=== PATIENT | male | born 1945 | race Caucasian/White ===

== ENCOUNTER 2025-03-22 00:57 | Observation (INO) ==
--- NOTE | 2025-03-22 01:25 | Emergency Department Note ---
Impression & Plan Acute upper abdominal pain, Vomiting, Cholelithiasis ED Provider Note NAME: KANDIS DRUMMOND AGE: 79 SEX: Male INFORMANT: Patient and ED PROVIDER(S): Henri Lim MD CHIEF COMPLAINT: Abdominal pain PLAN: Disposition: Admitted Outpatient prescription management: none Referral: None MEDICAL DECISION MAKING: Patient presented because of abdominal pain. On arrival to the exam room patient had nausea and vomiting. He had an IV established. ECG was nonischemic. No prior records available as the patient is traveling from [place]. Patient was treated with IV Dilaudid and Zofran for symptom control. He had an i-STAT performed patient was sent for CT imaging. CT imaging shows cholelithiasis. No obstruction, perforation, appendicitis or diverticulitis appreciated. Patient had a leukocytosis on CBC. Chemistry panel revealed a slight elevation of bilirubin and alkaline phosphatase without elevation of LFTs. Patient had negative cardiac troponin. Ultrasound imaging of the gallbladder was ordered. Patient was reassessed and pain was improving. He was found to have a distended gallbladder with borderline wall thickening and stones. No pericholecystic fluid appreciated. Patient was reassessed and is improving. Given the white count, abnormal imaging and mildly abnormal LFTs further evaluation, consultation and management in the hospital was deemed appropriate. Consultation was made with Dr. Carter of the [facility] service. Case discussed and diagnostics were reviewed. Patient was evaluated in the ER for further management. Care/management discussed with: associate brand manager Level of care consideration(s): After review of the information above and other included data, I feel the patient requires escalation of care to admission Triage Nursing notes: reviewed and agree them. Vital Signs: reviewed and remarkable for hypertension Additional History obtained from: Patient's regarding his medical history and patient's medications. Chronic Medical/Social Conditions affecting care: Diabetes and hypertension Prior/ Outside/ External records reviewed: None available Differential Diagnosis: Etiologies such as gastroenteritis, biliary pathology,food borne illness, infections, appendicitis, diverticulitis, inflammatory bowel disease, GI bleed, as well as others were entertained. Diagnostics, independently interpreted by me: ECG: Twelve-lead ECG reveals sinus rhythm at 60 bpm. Septal infarct and inferior infarct present. No ST elevation. Cardiac Monitoring: Cardiac monitoring ordered by me: The patient was placed on continuous cardiac monitoring and observed. It revealed a normal sinus rhythm at 69 beats per minute without ectopy or evidence of dysrhythmia. Medical decision rules: none Imaging studies: CT scan and ultrasound as above. Abnormal gallbladder. HPI: 79 year old Male arrives for evaluation of abdominal pain. This started about 3 hours ago and is persisting. The patient also notes the following associated symptoms, nausea and vomiting on ER arrival. The patient has found no relieving factors. Current pain is rated as 5/10. Patient notes pain was much worse. He notes few days ago he had a similar episode of pain but it resolved. Patient notes that he did have a steak dinner tonight. Denies any abdominal surgery history. Pt denies LOC, headache, fevers, chills, diaphoresis, visual changes, neck pain, chest pain, breathing difficulties, back pain, melena, hematochezia, urinary symptoms, numbness, weakness, lymphadenopathy, rash, or other complaints.. PAST MEDICAL HISTORY: See Below, diabetes, hypertension PAST SURGICAL HISTORY: See Below, TKR SOCIAL HISTORY: , see below HOME MEDICATIONS: See Below ALLERGIES: See Below VITALS: See Below PHYSICAL EXAMINATION: GENERAL: Awake, alert, uncomfortable-appearing, in no distress HENT: Normocephalic, atraumatic. Oropharynx unremarkable. EYES: Normal conjunctiva. Sclera non-icteric. NECK: Inspection normal. Non-tender. Supple. No nuchal rigidity. FROM. No masses. RESPIRATORY: Clear to auscultation. No wheezes. No rales. Normal respiratory effort. CARDIAC: Normal rate. Normal rhythm. No murmurs. No rubs. Extremities warm and well perfused. Pulses equal. No JVD. GI: Soft, mildly-distended. Right upper quadrant and epigastric tenderness to palpation. No rebound or guarding. No masses. RECTAL: Deferred. MUSCULOSKELETAL: Atraumatic. Chest examination reveals no tenderness. The back is symmetrical on inspection without obvious abnormality. There is no CVA tenderness to palpation. No joint edema. LOWER EXTREMITIES: Calves are equal size bilaterally and non-tender. No edema. No discoloration. NEURO: Normal sensorium. No sensory or motor deficits noted. SKIN: No rash or jaundice noted. PROCEDURES: none CRITICAL CARE: none OBSERVATION NOTE: none Past Med/Surg History Problem List (Updated 03/22/25 @ 04:57 by Henri Lim MD) Cholelithiasis (Acute) Vomiting (Acute) Acute upper abdominal pain (Acute) Social History Smoking Status: Former smoker Preferred Language: Swedish Feels Safe at Home: Yes Allergies Allergies Allergy/AdvReac Type Severity Reaction Status Date / Time No Known Allergies Allergy Unverified 03/22/25 02:12 Home Meds Home Medications Medication Instructions Recorded Confirmed amlodipine 5 mg tablet 5 mg PO QAM 03/22/25 03/22/25 atorvastatin 80 mg tablet 80 mg PO HS 03/22/25 03/22/25 dapagliflozin propanediol 10 mg 10 mg PO QAM 03/22/25 03/22/25 tablet (Farxiga) glipizide 5 mg tablet 5 mg PO BID 03/22/25 03/22/25 lisinopril 20 mg tablet 20 mg PO QAM 03/22/25 03/22/25 metformin 1,000 mg tablet 1,000 mg PO BID 03/22/25 03/22/25 Results & Data (ED) Vital Signs Vital Signs - 24 hr 03/22/25 01:01 03/22/25 01:05 03/22/25 01:16 Temperature 36.9 C Temperature Source Temporal Artery Scan Pulse Rate 73 69 68 Pulse Rate [Finger] Pulse Rhythm Regular Regular Pulse Rhythm [Finger] Pulse Strength Normal Pulse Strength [Finger] Respiratory Rate 22 20 Respiratory Effort / Characteristics Non-Labored Spontaneous Respiratory Depth Normal Respiratory Pattern Regular Blood Pressure 177/79 H Blood Pressure [Right Arm] Blood Pressure Mean 111 Blood Pressure Mean [Right Arm] Blood Pressure Position Sitting Blood Pressure Position [Right Arm] Pulse Oximetry 95 96 Oxygen Delivery Method Room Air Room Air Sepsis Recent Fever Within 48 Hours No Sepsis New/Unexplained Change in Mental Status N/A Sepsis Action Taken by Nursing No Action Required 03/22/25 03:00 Temperature Temperature Source Pulse Rate Pulse Rate [Finger] 73 Pulse Rhythm Pulse Rhythm [Finger] Regular Pulse Strength Pulse Strength [Finger] Normal Respiratory Rate 20 Respiratory Effort / Characteristics Non-Labored Respiratory Depth Normal Respiratory Pattern Regular Blood Pressure Blood Pressure [Right Arm] 127/74 Blood Pressure Mean Blood Pressure Mean [Right Arm] 91 Blood Pressure Position Blood Pressure Position [Right Arm] Lying Pulse Oximetry 96 Oxygen Delivery Method Sepsis Recent Fever Within 48 Hours Sepsis New/Unexplained Change in Mental Status Sepsis Action Taken by Nursing Laboratory Data 03/22/25 01:24 03/22/25 01:24 Lab Results 03/22/25 03/22/25 Range/Units 01:24 01:30 WBC 13.09 H (4.8-10.8) K/ul RBC 4.95 (4.70-6.10) M/uL Hgb 16.2 (14.0-18.0) g/dl POC Hgb 16.7 (14.0-18.0) g/dl Hct 47.4 (42.0-52.0) % POC Hct 49 (42-52) % MCV 95.8 (80.0-100.0) fL MCH 32.7 (25.0-34.0) pg MCHC 34.2 (32.0-36.0) g/dL RDW Std Deviation 44.9 (36.4-46.3) fL RDW Coeff of Nneka 12.7 (11.5-14.5) % Plt Count 186 (130-400) K/uL MPV 10.2 (9.4-12.4) fL Immature Gran % (Auto) 0.4 % Neut % (Auto) 57.3 % Lymph % (Auto) 34.5 % [place] % (Auto) 6.6 % Eos % (Auto) 0.8 % Baso % (Auto) 0.4 % Neut # (Auto) 7.49 H (1.40-6.50) K/uL Lymph # (Auto) 4.52 H (1.20-3.40) K/uL [place] # (Auto) 0.87 H (0.11-0.59) K/uL Eos # (Auto) 0.11 (0.00-0.50) K/uL Baso # (Auto) 0.05 (0.00-0.20) K/uL Immature Gran # (Auto) 0.05 (0.01-0.20) K/uL Polychromasia 1+ POC Sodium 140 (135-144) mmol/L Sodium 139 (136-145) mmol/L POC Potassium 4.2 (3.3-5.0) mmol/L Potassium 4.2 (3.5-5.1) mmol/L POC Chloride 103 (101-112) mmol/L Chloride 103 (98-107) mmol/L Carbon Dioxide 26 (21-32) mmol/L POC Total CO2 24 (24-31) mmol/L Anion Gap 10 (3-11) POC Anion Gap 19.0 (16-25) mmol/L POC BUN 19 H (7-18) mg/dl BUN 20 (6-23) mg/dl Creatinine 1.32 (0.6-1.4) mg/dl POC Creatinine 1.4 H (0.6-1.3) mg/dl Est Cr Clr Drug Dosing 54.0 ml/min eGFR 55.55 BUN/Creatinine Ratio 15.2 (10-20) Glucose 139 H (70-99(Fasting)) mg/dl POC Glucose (other) 139 H (70-99) mg/dl Calcium 9.6 (8.6-10.3) mg/dl POC Ioniz Calcium Ginny 1.24 (1.12-1.32) mmol/l Total Bilirubin 1.1 H (0.2-1.0) mg/dl AST 25 (13-39) U/L ALT 33 (7-52) U/L Alkaline Phosphatase 127 H (34-104) U/L Troponin I High Sens 5.1 (0-20) pg/ml Total Protein 7.5 (6.0-8.3) gm/dl Albumin 4.5 (3.4-5.0) gm/dl Globulin 3.0 (2.5-4.0) gm/dl Albumin/Globulin Ratio 1.5 (0.9-2) Lipase 39 (11-82) U/L Administered Medications Hydromorphone HCl (Hydromorphone Inj 0.5 Mg/0.5 Ml Syr) 0.5 mg IV Q15M PRN PRN Reason: Pain Stop: 04/05/25 01:15 Last Admin: 03/22/25 01:28 Dose: 0.5 mg Documented By: ZANE Discontinued Medications Ioversol (Optiray 320 100ml) 93 ml IV ONCE ONE Stop: 03/22/25 01:55 Last Admin: 03/22/25 01:54 Dose: 93 ml Documented By: SRUTHI Ondansetron HCl (Ondansetron Inj 2 Mg/Ml 2 Ml Vial) 4 mg IV NOW STA Stop: 03/22/25 01:17 Last Admin: 03/22/25 01:28 Dose: 4 mg Documented By: ZANE Imaging Data Radiologist's Impression: Abdomen/Pelvis CT 03/22/25 01:16 EXAM: CT abd pelvis IV con only CLINICAL HISTORY: RUQ and epigastric abd pain, vomiting TECHNIQUE: Contrast-enhanced CT of the abdomen and pelvis was performed, with the following protocol: axial images with, and reconstructed coronal and sagittal images. Intravenous 93ml optiray 320 contrast was administered. One of the following dose reduction techniques was utilized for this exam: Automated exposure control, adjustment of the mA and/or kV according to patient size, and use of iterative reconstruction. COMPARISON: None. FINDINGS: Abdomen: Liver: Normal in size, shape, and density. No focal lesions, cysts, or masses were identified. Hepatic vasculature and biliary ducts are unremarkable. Gallbladder and Biliary System: The GB shows average wall thickness with multiple small hyperdense stones. No wall thickening, pericholecystic fluid, or gallstones were identified. The common bile duct is normal in caliber without dilation. Pancreas: Pancreatic head, body, and tail are visualized and appear normal in size and density. No pancreatic masses or calcifications were noted. The pancreatic duct is not dilated. Spleen: Normal in size, shape, and density. No splenic lesions or masses were identified. Appendix: The appendix is normal in size without bridget appendiceal fat stranding, and without an appendicolith. No evidence of appendiceal abscess or perforation. Kidneys and Adrenal Glands: Both kidneys are normal in size, shape, and position. Cortical thickness is within normal limits. No renal calculi or hydronephrosis. Adrenal glands are unremarkable with no evidence of masses or hyperplasia. Pelvis: Urinary Bladder: The urinary bladder shows a lobulated contour mounting to diverticular formation (neurogenic bladder is suspected). No intraluminal lesions identified. Prostate: Normal in size and contour. No focal lesions or masses identified. Seminal Vesicles: Normal in size and appearance. No abnormalities noted. Rectum and Sigmoid Colon: Normal wall thickness and no evidence of mass. Peritoneal and Retroperitoneal Structures: No free fluid or abnormal fluid collections were identified within the abdomen or pelvis. No lymphadenopathy was noted. Bowel: Sigmoid diverticulosis with no evidence of acute diverticulitis. No evidence of bowel obstruction or wall thickening. Bones and Soft Tissues: Lumbar spondylodegenerative changes. No fractures or abnormal masses were identified. Other findings: Left side inguinal hernia containing mental fat. Small umbilical hernia. IMPRESSION: 1. No evidence of acute intra-abdominal pathology. 2. Cholelithiasis 3. Sigmoid diverticulosis with no evidence of acute diverticulitis. 4. The urinary bladder shows a lobulated contour mounting to diverticular formation; the neurogenic bladder is suspected to be clinically correlated. 5. Prostatomegaly BPH (with central calcifications) suggests PSA correlation. 6. Left side inguinal hernia containing omentum. 7. Small umbilical hernia. 8. Lumbar spondylodegenerative changes. Electronically signed by Hussain Telles 03-22-2025 02:49 AM Gallbladder Ultrasound 03/22/25 02:03 EXAM: US gallbladder CLINICAL HISTORY: RUQ pain, gallstones on CT TECHNIQUE: Ultrasound examination of the RUQ was performed using a [high-frequency transducer]. Scanning was performed with the patient in supine position. COMPARISON: A recent CT 03/22/2025 00:58 was reviewed FINDINGS: Liver: The liver is enlarged in size, measuring 17.8 cm. The liver displaying a bright homogenous echo-pattern suggests fatty infiltration. Focal fatty sparing adjacent to the GB. Irregularly shaped hypoechoic region at the right lobe, the central portion is hypoechoic than the periphery, differentials include mass Vs fat sparing, measuring 1.3x1.1x1.1 cm. Hepatic vasculature appears normal. Gallbladder: Gallbladder size: The gall bladder is distended measuring 8.8 cm in maximal length, and shows a thickened wall 4 mm with multiple variable-sized stones and sludge. No evidence of gallbladder wall edema or signs of acute cholecystitis. Biliary Tree: The common bile duct is prominent, measuring 6 mm. No evidence of choledocholithiasis or biliary obstruction. Right Kidney: The right kidney appears normal in size with preserved corticomedullary differentiation. No evidence of hydronephrosis, renal cysts, or masses. IMPRESSION: Ultrasound examination of the Right Upper Quadrant (RUQ): 1. Fatty hepatomegaly with fat-sparing areas. 2. Irregularly shaped hypoechoic region at the right lobe, the central portion is hypoechoic than the periphery, differentials include mass Vs fat sparing, measuring 1.3x1.1x1.[address] scan triphasic protocol is advised. 3. Cholelithiasis without acute cholecystitis. 4. Recommendation: clinical correlation with symptoms and further evaluation as indicated. Electronically signed by Hussain Telles 03-22-2025 04:16 AM Discharge Plan Visit Data Chief Complaint: Abdominal Pain Stated Complaint: ABD PAIN ED Provider: Henri Lim Discharge Problem: Acute upper abdominal pain, Vomiting, Cholelithiasis Patient Disposition: Admitted As Inpatient Condition: Fair Forms Stand Alone Forms: My [facility] Prescriptions Prescriptions: No Action atorvastatin 80 mg tablet 80 mg PO HS metformin 1,000 mg tablet 1,000 mg PO BID dapagliflozin propanediol [Farxiga] 10 mg tablet 10 mg PO QAM lisinopril 20 mg tablet 20 mg PO QAM amlodipine 5 mg tablet 5 mg PO QAM glipizide 5 mg Tablet 5 mg PO BID Referrals Referrals: PCP,NO [Physician] -
[2025-03-22] MEDS: ONDANSETRON INJ 2 MG/ML 2 ML VIAL IV STA (01:28)
[2025-03-22] MEDS: HYDROmorphone INJ 0.5 MG/0.5 ML SYR IV PRN (01:28)
[2025-03-22 01:41] LABS: Hematocrit (blood only) 47.4 % (42.0-52.0); Hemoglobin 16.2 g/dl (14.0-18.0); Mean Corpuscular Hemoglobin 32.7 pg (25.0-34.0); Mean Corpuscular Volume 95.8 fL (80.0-100.0); Platelet Count 186 K/uL (130-400); RDW Standard Deviation 44.9 fL (36.4-46.3); Red Blood Count 4.95 M/uL (4.70-6.10); White Blood Count 13.09 K/ul (4.8-10.8)
[2025-03-22] MEDS: OPTIRAY 320 100ml IV ONE (01:54)
[2025-03-22 02:00] LABS: Immature Granulocytes # (auto) 0.05 K/uL (0.01-0.20); Immature Granulocytes % (auto) 0.4 %; Polychromasia 1+
[2025-03-22 02:11] LABS: Alanine Aminotransferase 33.0 U/L (7-52); Albumin Globulin Ratio 1.5 (0.9-2); Alkaline Phosphatase 127.0 U/L (34-104); Anion Gap 10.0 (3-11); Bilirubin,Total 1.1 mg/dl (0.2-1.0); Blood Urea Nitrogen 20.0 mg/dl (6-23); Calcium 9.6 mg/dl (8.6-10.3); Carbon Dioxide 26.0 mmol/L (21-32); Chloride 103.0 mmol/L (98-107); Creatinine Clr Calc Pharmacy 54.0 ml/min; Globulin 3.0 gm/dl (2.5-4.0); Glucose 139.0 mg/dl (70-99(Fasting)); Lipase 39.0 U/L (11-82); Potassium 4.2 mmol/L (3.5-5.1); Sodium 139.0 mmol/L (136-145); Total Protein 7.5 gm/dl (6.0-8.3)
--- NOTE | 2025-03-22 02:49 | CT Scan Report ---
EXAM: CT abd pelvis IV con only CLINICAL HISTORY: RUQ and epigastric abd pain, vomiting TECHNIQUE: Contrast-enhanced CT of the abdomen and pelvis was performed, with the following protocol: axial images with, and reconstructed coronal and sagittal images. Intravenous 93ml optiray 320 contrast was administered. One of the following dose reduction techniques was utilized for this exam: Automated exposure control, adjustment of the mA and/or kV according to patient size, and use of iterative reconstruction. COMPARISON: None. FINDINGS: Abdomen: Liver: Normal in size, shape, and density. No focal lesions, cysts, or masses were identified. Hepatic vasculature and biliary ducts are unremarkable. Gallbladder and Biliary System: The GB shows average wall thickness with multiple small hyperdense stones. No wall thickening, pericholecystic fluid, or gallstones were identified. The common bile duct is normal in caliber without dilation. Pancreas: Pancreatic head, body, and tail are visualized and appear normal in size and density. No pancreatic masses or calcifications were noted. The pancreatic duct is not dilated. Spleen: Normal in size, shape, and density. No splenic lesions or masses were identified. Appendix: The appendix is normal in size without bridget appendiceal fat stranding, and without an appendicolith. No evidence of appendiceal abscess or perforation. Kidneys and Adrenal Glands: Both kidneys are normal in size, shape, and position. Cortical thickness is within normal limits. No renal calculi or hydronephrosis. Adrenal glands are unremarkable with no evidence of masses or hyperplasia. Pelvis: Urinary Bladder: The urinary bladder shows a lobulated contour mounting to diverticular formation (neurogenic bladder is suspected). No intraluminal lesions identified. Prostate: Normal in size and contour. No focal lesions or masses identified. Seminal Vesicles: Normal in size and appearance. No abnormalities noted. Rectum and Sigmoid Colon: Normal wall thickness and no evidence of mass. Peritoneal and Retroperitoneal Structures: No free fluid or abnormal fluid collections were identified within the abdomen or pelvis. No lymphadenopathy was noted. Bowel: Sigmoid diverticulosis with no evidence of acute diverticulitis. No evidence of bowel obstruction or wall thickening. Bones and Soft Tissues: Lumbar spondylodegenerative changes. No fractures or abnormal masses were identified. Other findings: Left side inguinal hernia containing mental fat. Small umbilical hernia. IMPRESSION: 1. No evidence of acute intra-abdominal pathology. 2. Cholelithiasis 3. Sigmoid diverticulosis with no evidence of acute diverticulitis. 4. The urinary bladder shows a lobulated contour mounting to diverticular formation; the neurogenic bladder is suspected to be clinically correlated. 5. Prostatomegaly BPH (with central calcifications) suggests PSA correlation. 6. Left side inguinal hernia containing omentum. 7. Small umbilical hernia. 8. Lumbar spondylodegenerative changes. Electronically signed by Hussain Telles 03-22-2025 02:49 AM
--- NOTE | 2025-03-22 04:16 | Ultrasound Report ---
EXAM: US gallbladder CLINICAL HISTORY: RUQ pain, gallstones on CT TECHNIQUE: Ultrasound examination of the RUQ was performed using a [high-frequency transducer]. Scanning was performed with the patient in supine position. COMPARISON: A recent CT 03/22/2025 00:58 was reviewed FINDINGS: Liver: The liver is enlarged in size, measuring 17.8 cm. The liver displaying a bright homogenous echo-pattern suggests fatty infiltration. Focal fatty sparing adjacent to the GB. Irregularly shaped hypoechoic region at the right lobe, the central portion is hypoechoic than the periphery, differentials include mass Vs fat sparing, measuring 1.3x1.1x1.1 cm. Hepatic vasculature appears normal. Gallbladder: Gallbladder size: The gall bladder is distended measuring 8.8 cm in maximal length, and shows a thickened wall 4 mm with multiple variable-sized stones and sludge. No evidence of gallbladder wall edema or signs of acute cholecystitis. Biliary Tree: The common bile duct is prominent, measuring 6 mm. No evidence of choledocholithiasis or biliary obstruction. Right Kidney: The right kidney appears normal in size with preserved corticomedullary differentiation. No evidence of hydronephrosis, renal cysts, or masses. IMPRESSION: Ultrasound examination of the Right Upper Quadrant (RUQ): 1. Fatty hepatomegaly with fat-sparing areas. 2. Irregularly shaped hypoechoic region at the right lobe, the central portion is hypoechoic than the periphery, differentials include mass Vs fat sparing, measuring 1.3x1.1x1.[address] scan triphasic protocol is advised. 3. Cholelithiasis without acute cholecystitis. 4. Recommendation: clinical correlation with symptoms and further evaluation as indicated. Electronically signed by Hussain Telles 03-22-2025 04:16 AM
--- NOTE | 2025-03-22 05:17 | History & Physical Report ---
Date of Service March 22, 2025 Assessment & Plan (1) Acute upper abdominal pain: (2) Hypertension: (3) Hyperlipidemia: (4) Diabetes: Plan 79yo male with hypertension, hyperlipidemia and DM presenting with episode of epigastric and RUQ abdominal pain that occurred approximately 3 hours after eating. Patient had a similar episode several days ago. He is afebrile, HD stable, and non-toxic in appearance Labs are significant for mild leukocytosis with WBC=13.09 OH=528, Tbili=1.1 with normal LFTs otherwise Imaging results as above wit cholelithiasis without acute cholecystitis #Acute upper abdominal pain - suspect biliary colic, not being interpreted as acute cholecystitis as of yet -Observation to medical -Maintain NPO -LR at 100L/hr x 2L -Empiric Zosyn for now -Pain control with Dilaudid PRN -Zofran PRN nausea -Colace and Miralax PRN -General Surgery consultation appreciated -Repeat labs - BMP, LFTs, CBC - today at 0700 * Patient ideally would like to be discharged to return to [place] and followup with his home physicians if it is safe to do so. HIM consultation placed to copy patient's records and to place imaging on a disc in event patient is discharged later today #Hypertension -Continue Amlodipine 5mg po daily -Hold Lisinopril -Continue to monitor #Hyperlipidemia -Continue Atorvastatin #Diabetes -Hold home agents, Metformin, Glipizide, Farxiga -Lantus 5u BID -ISS -Goal blood sugar 110 - 140 History of Present Illness Chief Complaint: RUQ pain Primary Care Provider: BURKE Mitchell is a pleasant 79yo male with history of HTN, HLP, DM and BPH presenting with epigastric and RUQ pain. Patient ate dinner this evening around 18:00. Around 21:30 he developed severe epigastric and RUQ discomfort. Pain was coming in waves. No diarrhea, fever, chills, rigors or sweats. He had a similar episodes several days ago. In the ER patient developed nausea and had two episodes of non-bloody/non-bilious vomiting. No additional complaints at this time ER Course: Zofran Dilaudid Allergies Allergy/AdvReac Type Severity Reaction Status Date / Time No Known Allergies Allergy Unverified 03/22/25 02:12 Home Medications Medication Instructions Recorded Confirmed Type amlodipine 5 mg tablet 5 mg PO QAM 03/22/25 03/22/25 History atorvastatin 80 mg tablet 80 mg PO HS 03/22/25 03/22/25 History dapagliflozin propanediol 10 mg 10 mg PO QAM 03/22/25 03/22/25 History tablet (Farxiga) glipizide 5 mg tablet 5 mg PO BID 03/22/25 03/22/25 History lisinopril 20 mg tablet 20 mg PO QAM 03/22/25 03/22/25 History metformin 1,000 mg tablet 1,000 mg PO BID 03/22/25 03/22/25 History Past Med/Surg History Problem List (Updated 03/22/25 @ 05:45 by Brenda Carter DO) BPH (benign prostatic hyperplasia) Hyperlipidemia Hypertension Diabetes Cholelithiasis (Acute) Vomiting (Acute) Acute upper abdominal pain (Acute) Surgical History (Updated 03/22/25 @ 05:45 by Brenda Carter DO) History of total knee arthroplasty Social History (Updated 03/22/25 @ 05:45 by Brenda Carter DO) Smoking Status: Former smoker Hx Alcohol Use: No Hx Substance Use: No Preferred Language: Thai Feels Safe at Home: Yes Review of Systems Review of Systems: All systems reviewed & are unremarkable except as noted in HPI & below Physical Exam Physical Exam: General: patient resting comfortably, NAD, non-toxic in appearance, AA&O x 4 Skin: warm, dry, intact, no rashes or lesions HEENT: NC/AT, PERRL, EOMI, anicteric sclera, conjunctiva without injection, external ear normal to inspection and nontender, nares patent, moist mucus membranes, dentition intact, no oropharyngeal lesions, neck supple, trachea midline, no LAD, no thyromegaly, no JVD Heart: +S1/S2, regular, no m/r/g Lungs: equal air entry bilaterally, no rales/rhonchi/wheezes Abd: +BS, soft, NT/ND, no masses/organomegaly/ascites Ext: warm, 2+ pulses in UE/LE bilaterally, no clubbing/cyanosis or edema Neuro: nonfocal, patient AA&O x 4, speech intact, no facial droop, moving all extremities on command with equal strength 5/5 Results & Data Results & Data Vital Signs (Past 12 Hours) Vital Signs Temp Pulse Pulse Resp BP BP Pulse Ox 03/22/25 03:00 73 20 127/74 96 03/22/25 01:16 68 03/22/25 01:05 69 20 96 03/22/25 01:01 36.9 C 73 22 177/79 H 95 O2 Del Method 03/22/25 03:00 03/22/25 01:16 03/22/25 01:05 Room Air 03/22/25 01:01 Room Air Laboratory Results Laboratory Results WBC 13.09 K/ul (4.8-10.8) H 03/22/25 01:24 RBC 4.95 M/uL (4.70-6.10) 03/22/25 01:24 Hgb 16.2 g/dl (14.0-18.0) 03/22/25 01:24 POC Hgb 16.7 g/dl (14.0-18.0) 03/22/25 01:30 Hct 47.4 % (42.0-52.0) 03/22/25 01:24 POC Hct 49 % (42-52) 03/22/25 01:30 MCV 95.8 fL (80.0-100.0) 03/22/25 01:24 MCH 32.7 pg (25.0-34.0) 03/22/25 01:24 MCHC 34.2 g/dL (32.0-36.0) 03/22/25 01:24 RDW Std Deviation 44.9 fL (36.4-46.3) 03/22/25 01:24 RDW Coeff of Nneka 12.7 % (11.5-14.5) 03/22/25 01:24 Plt Count 186 K/uL (130-400) 03/22/25 01:24 MPV 10.2 fL (9.4-12.4) 03/22/25 01:24 Immature Gran % (Auto) 0.4 % 03/22/25 01:24 Neut % (Auto) 57.3 % 03/22/25 01:24 Lymph % (Auto) 34.5 % 03/22/25 01:24 Crosby % (Auto) 6.6 % 03/22/25 01:24 Eos % (Auto) 0.8 % 03/22/25 01:24 Baso % (Auto) 0.4 % 03/22/25 01:24 Neut # (Auto) 7.49 K/uL (1.40-6.50) H 03/22/25 01:24 Lymph # (Auto) 4.52 K/uL (1.20-3.40) H 03/22/25 01:24 Crosby # (Auto) 0.87 K/uL (0.11-0.59) H 03/22/25 01:24 Eos # (Auto) 0.11 K/uL (0.00-0.50) 03/22/25 01:24 Baso # (Auto) 0.05 K/uL (0.00-0.20) 03/22/25 01:24 Immature Gran # (Auto) 0.05 K/uL (0.01-0.20) 03/22/25 01:24 Polychromasia 1+ 03/22/25 01:24 POC Sodium 140 mmol/L (135-144) 03/22/25 01:30 Sodium 139 mmol/L (136-145) 03/22/25 01:24 POC Potassium 4.2 mmol/L (3.3-5.0) 03/22/25 01:30 Potassium 4.2 mmol/L (3.5-5.1) 03/22/25 01:24 POC Chloride 103 mmol/L (101-112) 03/22/25 01:30 Chloride 103 mmol/L (98-107) 03/22/25 01:24 Carbon Dioxide 26 mmol/L (21-32) 03/22/25 01:24 POC Total CO2 24 mmol/L (24-31) 03/22/25 01:30 Anion Gap 10 (3-11) 03/22/25 01:24 POC Anion Gap 19.0 mmol/L (16-25) 03/22/25 01:30 POC BUN 19 mg/dl (7-18) H 03/22/25 01:30 BUN 20 mg/dl (6-23) 03/22/25 01:24 Creatinine 1.32 mg/dl (0.6-1.4) 03/22/25 01:24 POC Creatinine 1.4 mg/dl (0.6-1.3) H 03/22/25 01:30 Est Cr Clr Drug Dosing 54.0 ml/min 03/22/25 01:24 eGFR 55.55 03/22/25 01:24 BUN/Creatinine Ratio 15.2 (10-20) 03/22/25 01:24 Glucose 139 mg/dl (70-99(Fasting)) H 03/22/25 01:24 POC Glucose (other) 139 mg/dl (70-99) H 03/22/25 01:30 Calcium 9.6 mg/dl (8.6-10.3) 03/22/25 01:24 POC Ioniz Calcium Ginny 1.24 mmol/l (1.12-1.32) 03/22/25 01:30 Total Bilirubin 1.1 mg/dl (0.2-1.0) H 03/22/25 01:24 AST 25 U/L (13-39) 03/22/25 01:24 ALT 33 U/L (7-52) 03/22/25 01:24 Alkaline Phosphatase 127 U/L (34-104) H 03/22/25 01:24 Troponin I High Sens 5.1 pg/ml (0-20) 03/22/25 01:24 Total Protein 7.5 gm/dl (6.0-8.3) 03/22/25 01:24 Albumin 4.5 gm/dl (3.4-5.0) 03/22/25 01:24 Globulin 3.0 gm/dl (2.5-4.0) 03/22/25 01:24 Albumin/Globulin Ratio 1.5 (0.9-2) 03/22/25 01:24 Lipase 39 U/L (11-82) 03/22/25 01:24 Impressions Abdomen/Pelvis CT 03/22/25 01:16 EXAM: CT abd pelvis IV con only CLINICAL HISTORY: RUQ and epigastric abd pain, vomiting TECHNIQUE: Contrast-enhanced CT of the abdomen and pelvis was performed, with the following protocol: axial images with, and reconstructed coronal and sagittal images. Intravenous 93ml optiray 320 contrast was administered. One of the following dose reduction techniques was utilized for this exam: Automated exposure control, adjustment of the mA and/or kV according to patient size, and use of iterative reconstruction. COMPARISON: None. FINDINGS: Abdomen: Liver: Normal in size, shape, and density. No focal lesions, cysts, or masses were identified. Hepatic vasculature and biliary ducts are unremarkable. Gallbladder and Biliary System: The GB shows average wall thickness with multiple small hyperdense stones. No wall thickening, pericholecystic fluid, or gallstones were identified. The common bile duct is normal in caliber without dilation. Pancreas: Pancreatic head, body, and tail are visualized and appear normal in size and density. No pancreatic masses or calcifications were noted. The pancreatic duct is not dilated. Spleen: Normal in size, shape, and density. No splenic lesions or masses were identified. Appendix: The appendix is normal in size without bridget appendiceal fat stranding, and without an appendicolith. No evidence of appendiceal abscess or perforation. Kidneys and Adrenal Glands: Both kidneys are normal in size, shape, and position. Cortical thickness is within normal limits. No renal calculi or hydronephrosis. Adrenal glands are unremarkable with no evidence of masses or hyperplasia. Pelvis: Urinary Bladder: The urinary bladder shows a lobulated contour mounting to diverticular formation (neurogenic bladder is suspected). No intraluminal lesions identified. Prostate: Normal in size and contour. No focal lesions or masses identified. Seminal Vesicles: Normal in size and appearance. No abnormalities noted. Rectum and Sigmoid Colon: Normal wall thickness and no evidence of mass. Peritoneal and Retroperitoneal Structures: No free fluid or abnormal fluid collections were identified within the abdomen or pelvis. No lymphadenopathy was noted. Bowel: Sigmoid diverticulosis with no evidence of acute diverticulitis. No evidence of bowel obstruction or wall thickening. Bones and Soft Tissues: Lumbar spondylodegenerative changes. No fractures or abnormal masses were identified. Other findings: Left side inguinal hernia containing mental fat. Small umbilical hernia. IMPRESSION: 1. No evidence of acute intra-abdominal pathology. 2. Cholelithiasis 3. Sigmoid diverticulosis with no evidence of acute diverticulitis. 4. The urinary bladder shows a lobulated contour mounting to diverticular formation; the neurogenic bladder is suspected to be clinically correlated. 5. Prostatomegaly BPH (with central calcifications) suggests PSA correlation. 6. Left side inguinal hernia containing omentum. 7. Small umbilical hernia. 8. Lumbar spondylodegenerative changes. Electronically signed by Hussain Telles 03-22-2025 02:49 AM Gallbladder Ultrasound 03/22/25 02:03 EXAM: US gallbladder CLINICAL HISTORY: RUQ pain, gallstones on CT TECHNIQUE: Ultrasound examination of the RUQ was performed using a [high-frequency transducer]. Scanning was performed with the patient in supine position. COMPARISON: A recent CT 03/22/2025 00:58 was reviewed FINDINGS: Liver: The liver is enlarged in size, measuring 17.8 cm. The liver displaying a bright homogenous echo-pattern suggests fatty infiltration. Focal fatty sparing adjacent to the GB. Irregularly shaped hypoechoic region at the right lobe, the central portion is hypoechoic than the periphery, differentials include mass Vs fat sparing, measuring 1.3x1.1x1.1 cm. Hepatic vasculature appears normal. Gallbladder: Gallbladder size: The gall bladder is distended measuring 8.8 cm in maximal length, and shows a thickened wall 4 mm with multiple variable-sized stones and sludge. No evidence of gallbladder wall edema or signs of acute cholecystitis. Biliary Tree: The common bile duct is prominent, measuring 6 mm. No evidence of choledocholithiasis or biliary obstruction. Right Kidney: The right kidney appears normal in size with preserved corticomedullary differentiation. No evidence of hydronephrosis, renal cysts, or masses. IMPRESSION: Ultrasound examination of the Right Upper Quadrant (RUQ): 1. Fatty hepatomegaly with fat-sparing areas. 2. Irregularly shaped hypoechoic region at the right lobe, the central portion is hypoechoic than the periphery, differentials include mass Vs fat sparing, measuring 1.3x1.1x1.[address] scan triphasic protocol is advised. 3. Cholelithiasis without acute cholecystitis. 4. Recommendation: clinical correlation with symptoms and further evaluation as indicated. Electronically signed by Hussain Telles 03-22-2025 04:16 AM Code Status & VTE Plan VTE Prophylaxis Plan VTE Prophylaxis will be ordered: Yes PG Care Time/CCT Total # of Minutes Spent Total Time Spent with Patient: Total time spent is greater than 50% in coordination of care (as documented) at patient's floor/unit and/or counseling patient: Coding Level of Care Code 27043 INT INP/OBS CARE 3/75MIN Diagnoses Acute upper abdominal pain R10.10 Hypertension I10 Hyperlipidemia E78.5 Diabetes E11.9
[2025-03-22] MEDS ORDERED: GLUCAGON FOR INJ 1 MG VIAL SQ PRN ×2 (08:53→13:39)
[2025-03-22] MEDS ORDERED: HYDROmorphone INJ 0.5 MG/0.5 ML SYR IV PRN ×2 (08:53)
[2025-03-22] MEDS ORDERED: GLUCOSE 40% GEL 15 GM TUBE PO PRN ×2 (08:53→13:39)
[2025-03-22] MEDS ORDERED: DOCUSATE SODIUM 100 MG CAP PO PRN (08:53)
[2025-03-22] MEDS ORDERED: ONDANSETRON INJ 2 MG/ML 2 ML VIAL IV PRN (08:53)
[2025-03-22] MEDS ORDERED: CARBOHYDRATES FOR HYPOGLYCEMIA PO PRN ×2 (08:53→13:39)
[2025-03-22] MEDS ORDERED: GLUCOSE 10 TAB/TUBE PO PRN ×2 (08:53→13:39)
[2025-03-22] MEDS ORDERED: POLYETHYLENE (MIRALAX) 17 GM PACK PO PRN (08:53)
[2025-03-22] MEDS ORDERED: DEXTROSE 50% 50 ML SYRINGE IV PRN ×2 (08:53→13:39)
--- NOTE | 2025-03-22 09:06 | Surgery Consultation ---
Date of Consultation March 22, 2025 Assessment & Plan (1) Cholelithiasis: Cholelithiasis with possible CBD stone Recommend -GI consult -MRCP -IV abx -possible lap juventino if medically cleared later this week History of Present Illness Attending Physician: Brenda Carter DO History of Present Illness This is a 79YO who came to ED with abdominal pain. He also has associated symptoms of nausea and vomiting. He notes few days ago he had a similar episode of pain but it resolved currently. US shows stones and borderline dilated CBD but no signs of acute cholecystitis. Allergies Allergy/AdvReac Type Severity Reaction Status Date / Time No Known Allergies Allergy Unverified 03/22/25 02:12 Home Medications Medication Instructions Recorded Confirmed Type amlodipine 5 mg tablet 5 mg PO QAM 03/22/25 03/22/25 History atorvastatin 80 mg tablet 80 mg PO HS 03/22/25 03/22/25 History dapagliflozin propanediol 10 mg 10 mg PO QAM 03/22/25 03/22/25 History tablet (Farxiga) glipizide 5 mg tablet 5 mg PO BID 03/22/25 03/22/25 History lisinopril 20 mg tablet 20 mg PO QAM 03/22/25 03/22/25 History metformin 1,000 mg tablet 1,000 mg PO BID 03/22/25 03/22/25 History Patient History Surgical History (Updated 03/22/25 @ 05:45 by Brenda Carter DO) History of total knee arthroplasty Social History (Updated 03/22/25 @ 05:45 by Brenda Carter DO) Smoking Status: Former smoker Hx Alcohol Use: No Hx Substance Use: No Preferred Language: Indonesian Feels Safe at Home: Yes Review of Systems Constitutional: no fever, no chills and no anorexia Eyes: no problem reported Ear, Nose, Mouth, Throat: no problem reported Respiratory: no cough and no dyspnea Cardiovascular: no chest pain Gastrointestinal: + abdominal pain, + nausea and + vomitin g; no change in bowel habits Genitourinary: no dysuria Musculoskeletal: no back pain Integumentary: no problem reported Neurologic: no localized weakness and no generalized weakness Psychiatric: no behavioral changes Hematologic / Lymphatic: no easy bleeding and no easy bruising Physical Exam Constitutional: WD/WN, vitals as above Eyes: no scleral abnormality ENMT: external ear and nose normal, oropharynx normal Neck: trachea midline Respiratory: normal respiratory effort, lungs clear to auscultation Cardiovascular: RRR, no murmur, no edema Gastrointestinal (Abdomen): Inspection/Auscultation: abdomen normal to inspection and normal bowel sounds; abdomen not distended Percussion/Palpation: + abdomen tender and abdomen soft; no guarding and abdomen not rigid Musculoskeletal: Head/Neck/Chest: normocephalic and head atraumatic Skin: no rashes, warm and dry Results & Data Vital Signs (Past 12 Hours) Vital Signs Temp Pulse Pulse Resp BP BP Pulse Ox 03/22/25 08:53 03/22/25 07:01 66 16 145/78 H 92 03/22/25 06:30 65 20 117/53 L 97 03/22/25 05:00 77 20 93/43 L 95 03/22/25 03:00 73 20 127/74 96 03/22/25 01:16 68 03/22/25 01:05 69 20 96 03/22/25 01:01 36.9 C 73 22 177/79 H 95 O2 Del Method 03/22/25 08:53 Room Air 03/22/25 07:01 Room Air 03/22/25 06:30 Room Air 03/22/25 05:00 Room Air 03/22/25 03:00 03/22/25 01:16 03/22/25 01:05 Room Air 03/22/25 01:01 Room Air Diagnostic Findings EXAM: US gallbladder CLINICAL HISTORY: RUQ pain, gallstones on CT TECHNIQUE: Ultrasound examination of the RUQ was performed using a [high-frequency transducer]. Scanning was performed with the patient in supine position. COMPARISON: A recent CT 03/22/2025 00:58 was reviewed FINDINGS: Liver: The liver is enlarged in size, measuring 17.8 cm. The liver displaying a bright homogenous echo-pattern suggests fatty infiltration. Focal fatty sparing adjacent to the GB. Irregularly shaped hypoechoic region at the right lobe, the central portion is hypoechoic than the periphery, differentials include mass Vs fat sparing, measuring 1.3x1.1x1.1 cm. Hepatic vasculature appears normal. Gallbladder: Gallbladder size: The gall bladder is distended measuring 8.8 cm in maximal length, and shows a thickened wall 4 mm with multiple variable-sized stones and sludge. No evidence of gallbladder wall edema or signs of acute cholecystitis. Biliary Tree: The common bile duct is prominent, measuring 6 mm. No evidence of choledocholithiasis or biliary obstruction. Right Kidney: The right kidney appears normal in size with preserved corticomedullary differentiation. No evidence of hydronephrosis, renal cysts, or masses. IMPRESSION: Ultrasound examination of the Right Upper Quadrant (RUQ): 1. Fatty hepatomegaly with fat-sparing areas. 2. Irregularly shaped hypoechoic region at the right lobe, the central portion is hypoechoic than the periphery, differentials include mass Vs fat sparing, measuring 1.3x1.1x1.[address] scan triphasic protocol is advised. 3. Cholelithiasis without acute cholecystitis. 4. Recommendation: clinical correlation with symptoms and further evaluation as indicated.
[2025-03-22] MEDS: LANTUS PER UNIT CHARGE SQ SCH (09:11)
[2025-03-22 09:24] LABS: Hematocrit (blood only) 41.5 % (42.0-52.0); Hemoglobin 14.2 g/dl (14.0-18.0); Mean Corpuscular Hemoglobin 32.4 pg (25.0-34.0); Mean Corpuscular Volume 94.7 fL (80.0-100.0); Platelet Count 149 K/uL (130-400); RDW Standard Deviation 44.2 fL (36.4-46.3); Red Blood Count 4.38 M/uL (4.70-6.10); White Blood Count 11.31 K/ul (4.8-10.8)
[2025-03-22] MEDS: LACTATED RINGER'S 1,000 ML IV SCH (09:26)
[2025-03-22 09:48] LABS: Alanine Aminotransferase 25.0 U/L (7-52); Alkaline Phosphatase 79.0 U/L (34-104); Anion Gap 5.0 (3-11); Bilirubin,Total 1.0 mg/dl (0.2-1.0); Blood Urea Nitrogen 19.0 mg/dl (6-23); Calcium 8.6 mg/dl (8.6-10.3); Carbon Dioxide 27.0 mmol/L (21-32); Chloride 106.0 mmol/L (98-107); Creatinine Clr Calc Pharmacy 62.6 ml/min; Glucose 123.0 mg/dl (70-99(Fasting)); Potassium 4.2 mmol/L (3.5-5.1); Sodium 138.0 mmol/L (136-145); Total Protein 6.0 gm/dl (6.0-8.3)
[2025-03-22] MEDS: SODIUM CHLORIDE 0.9% 1,000 ML IV SCH (10:15)
[2025-03-22] MEDS: PIPERACILLIN/TAZOBACTAM 4.5 GM/100 ML BAG IV STA (10:15)
[2025-03-22] MEDS: INSULIN ASPART PER UNIT CHARGE SC SCH ×2 (10:40→17:12)
--- NOTE | 2025-03-22 13:45 | Hospitalist Progress Note ---
Date of Service March 22, 2025 Assessment & Plan (1) Acute upper abdominal pain: Plan: Possible biliary colic. Now resolved. He has evidence of cholelithiasis. General surgery consultation appreciated. The patient would rather not have any further workup here as he lives in [place] and would simply like to go home and pursue further evaluation there. Clear liquids have been started. He has been started on intravenous Zosyn as a precaution. (2) Hypertension: Plan: Stable. Lisinopril is on hold. Amlodipine continues for now. (3) Hyperlipidemia: Plan: Stable. He is on statin therapy (4) Diabetes: Plan: Sliding scale coverage for now. Will avoid basal insulin therapy since he is insulin ulises and hypoglycemia needs to be avoided. He will resume his usual diabetic management at discharge Plan Hopeful discharge to home tomorrow, March 23, if stable so he can pursue further evaluation in his home state of [place]. Admission and Anticipated Discharge Date Admission Date: March 22, 2025 Subjective Currently asymptomatic. The patient is from [place] and would like to go home for further evaluation and care if it becomes necessary. He may have passed a stone with symptoms consistent with biliary colic. Clear liquids have been started. Will simply use sliding scale coverage for now and discontinue scheduled basal Lantus coverage since he is insulin ulises. General surgery consultation and recommendations noted. Will not pursue any further workup per patient request as long as he remains stable. Hopefully he can be discharged and go back to [place] tomorrow, March 23 Review of Systems 2 Review of Systems: Constitutionalno fever or chills ENTno blurred vision, no double vision, no epistaxis, no sore throat Respiratoryno cough, no wheezing, no shortness of breath Cardiacno palpitations, no chest pain, no syncope Emerson nausea, vomiting, diarrhea, melena, hematochezia GUno urinary retention, no urinary incontinence, no dysuria, no hematuria Musculoskeletalno joint pain, no muscle tenderness Skinno bruising, no rashes, no pruritus Neurono isolated weakness, no paresthesia, no weakness Psychno depression, no anxiety Physical Exam 2 Physical Exam: General-alert and oriented x3, no fever, no chills HEENT-head atraumatic and normocephalic, pupils equal and reactive to light, extraocular muscles intact Neck-no lymphadenopathy or thyromegaly, trachea midline Chest-clear to auscultation. No rales, wheezing or rhonchi Cardiac-regular rate and rhythm, normal S1 and S2 Abdomen-normal bowel sounds, no hepatosplenomegaly Extremities-no cyanosis, clubbing, or edema Neuro-cranial nerves II through XII intact, motor and sensory function within normal limits, strength symmetrical, no focal deficits Psych-normal affect, normal mood Results & Data Results & Data Vital Signs (Past 12 Hours) Vital Signs Temp Pulse Pulse Resp BP BP Pulse Ox 03/22/25 12:13 03/22/25 11:43 36.5 C 65 18 135/76 92 03/22/25 11:30 96 H 20 136/75 96 03/22/25 09:27 62 20 119/81 91 03/22/25 09:00 66 16 119/81 95 03/22/25 08:53 03/22/25 08:00 63 14 123/72 92 03/22/25 07:51 71 14 123/72 92 03/22/25 07:01 66 16 145/78 H 92 03/22/25 06:30 65 20 117/53 L 97 03/22/25 05:00 77 20 93/43 L 95 03/22/25 03:00 73 20 127/74 96 O2 Del Method 03/22/25 12:13 Room Air 03/22/25 11:43 Room Air 03/22/25 11:30 Room Air 03/22/25 09:27 Room Air 03/22/25 09:00 03/22/25 08:53 Room Air 03/22/25 08:00 03/22/25 07:51 03/22/25 07:01 Room Air 03/22/25 06:30 Room Air 03/22/25 05:00 Room Air 03/22/25 03:00 Laboratory Results 03/22/25 09:01 03/22/25 09:01 PG Care Time/CCT Total # of Minutes Spent Total Time Spent with Patient: Total time spent is greater than 50% in coordination of care (as documented) at patient's floor/unit and/or counseling patient: Coding Level of Care Code 52710 SUB INP/OBS CARE 3/50MIN Diagnoses Acute upper abdominal pain R10.10 Hypertension I10 Hyperlipidemia E78.5 Diabetes E11.9
[2025-03-22] MEDS: PIPERACILLIN/TAZOBACTAM 4.5 GM/100 ML BAG IV SCH (15:40)
--- NOTE | 2025-03-22 17:50 | Electrocardiogram Report ---
Test Reason : Blood Pressure : */* mmHG Vent. Rate : 68 BPM Atrial Rate : 68 BPM P-R Int : 188 ms QRS Dur : 96 ms QT Int : 398 ms P-R-T Axes : -8 -12 -16 degrees QTcB Int : 423 ms Normal sinus rhythm Poor R wave progression, consider anterior [place] vs. lead placement vs. LVH possible Inferior infarct , age undetermined Abnormal ECG No previous ECGs available Confirmed by Oskar Pablo ([id number]) on 03/22/2025 5:49:30 PM Referred By: REFERRED SELF Confirmed By: Oskar Pablo
[2025-03-22 19:52] VITALS: TEMP 98.1
[2025-03-22] MEDS: ATORVASTATIN 40 MG TAB PO SCH (21:00)
[2025-03-23 06:58] VITALS: BP 137/81; PULSE 62; RESP 18; O2SAT 93
--- NOTE | 2025-03-23 10:41 | Surgery Progress Note ---
Date of Service March 23, 2025 Assessment & Plan (1) Cholelithiasis: Plan: currently asymptomatic, gallbladder distended on ultrasound with no findings of acute cholecystitis. Normal leukocytosis. He lives in [place], so would like to proceed with additional work-up follow-up with surgeon there. Discussed low fat diet in interim. (2) Elevated bilirubin: Plan: slightly elevated 1.1 now normalized Alk phos also elevated at admission now normalized Possible transient biliary obstruction Plan: okay from surgical standpoint to advance diet to low fat and discharge home with surgical follow-up in [place]. Admission and Anticipated Discharge Date Admission Date: March 22, 2025 Subjective feeling good, no abdominal pain no n,v tolerated clears for breakfast no fever, chills, sweats, no chest pain or shortness of breath Physical Exam Constitutional: WD/WN, vitals as above + obese, cooperative and comfortable; no acute distress and not ill appearing Respiratory: normal respiratory effort, lungs clear to auscultation Cardiovascular: RRR, no murmur, no edema Gastrointestinal (Abdomen): Inspection/Auscultation: abdomen normal to inspection; abdomen not distended Percussion/Palpation: abdomen soft; abdomen nontender, no guarding and abdomen not rigid Skin: no rashes, warm and dry Psychiatric: A+Ox3, euthymic affect Results & Data Vital Signs (Past 12 Hours) Vital Signs Temp Pulse Resp BP Pulse Ox O2 Del Method 03/23/25 06:56 36.7 C 62 18 137/81 93 Room Air Laboratory Results 03/23/25 03/23/25 03/22/25 Range/Units 11:35 08:32 20:42 POC Glucose 122 H 158 H 108 H (70-99) mg/dl 03/22/25 Range/Units 16:48 POC Glucose 111 H (70-99) mg/dl
--- NOTE | 2025-03-23 12:01 | Discharge Summary ---
Discharge Summary Date of Service March 23, 2025 Principal Dx & Hospital Course #1 = Principal Diagnosis (1) Acute upper abdominal pain: Suspected biliary colic. Now resolved. He has evidence of cholelithiasis. General surgery consultation appreciated. The patient would rather not have any further workup here as he lives in [place] and would simply like to go home and pursue further evaluation there. He is now asymptomatic. Diet has been advanced. He was treated while hospitalized with intravenous Zosyn as a precaution. (2) Hypertension: Stable. Lisinopril is on hold. Restart at discharge. Amlodipine continues for now. (3) Hyperlipidemia: Stable. He is on statin therapy (4) Diabetes: Sliding scale coverage for now. Will avoid basal insulin therapy since he is insulin ulises and hypoglycemia needs to be avoided. He will resume his usual diabetic management at discharge Plan Home today, March 23 Admission HPI Per Admitting Provider Abdoul Mitchell is a pleasant 79yo male with history of HTN, HLP, DM and BPH presenting with epigastric and RUQ pain. Patient ate dinner this evening around 18:00. Around 21:30 he developed severe epigastric and RUQ discomfort. Pain was coming in waves. No diarrhea, fever, chills, rigors or sweats. He had a similar episodes several days ago. In the ER patient developed nausea and had two episodes of non-bloody/non-bilious vomiting. No additional complaints at this time ER Course: Zofran Dilaudid Discharge Exam General-alert and oriented x3, no fever, no chills HEENT-head atraumatic and normocephalic, pupils equal and reactive to light, extraocular muscles intact Neck-no lymphadenopathy or thyromegaly, trachea midline Chest-clear to auscultation. No rales, wheezing or rhonchi Cardiac-regular rate and rhythm, normal S1 and S2 Abdomen-normal bowel sounds, no hepatosplenomegaly. No abdominal tenderness Extremities-no cyanosis, clubbing, or edema Neuro-cranial nerves II through XII intact, motor and sensory function within normal limits, strength symmetrical, no focal deficits Psych-normal affect, normal mood Discharge Plan Discharge Items Patient Disposition: Home - Self-Care Reason For Visit: RUQ PAIN Discharge Diagnosis: Suspected biliary colic causing right upper quadrant discomfort nausea and vomiting Condition on Discharge: Good Activity: Resume your previous activity Non-emergency contact: Primary Care Provider Call non-emergency contact if: your symptoms worsen Follow-up/Referrals: BURKE MARTÍNEZ [Other] Diet: Carb Consistent or DM2 Addtl Attending Provider Instructions: See primary care provider soon as possible for consideration for elective gallbladder surgery Pending Studies at Discharge: No Stand-Alone Forms: My [facility], Smoking Cessation Medications and DC Order Prescriptions: Continued atorvastatin 80 mg tablet 80 mg PO HS metformin 1,000 mg tablet 1,000 mg PO BID dapagliflozin propanediol [Farxiga] 10 mg tablet 10 mg PO QAM lisinopril 20 mg tablet 20 mg PO QAM amlodipine 5 mg tablet 5 mg PO QAM glipizide 5 mg Tablet 5 mg PO BID Discharge Orders: Discharge Order (Routine); Ordered 03/23/25 Ordered By: Parth Oakes Admission Data Admit Date/Time: 03/22/25 05:16 Attending Provider: Brenda Carter Admit Provider: Brenda Carter Primary Care Provider: BURKE MARTÍNEZ Other Providers: Kristian Mann; Brenda Carter Hospital Stay Data Consultations 03/22/25 04:43 ED Decision to Admit Stat 03/22/25 05:16 Consult General Surgery Routine HIM [Consult Health Information Management] Routine Diagnostic Imagining Performed 03/22/25 01:16 CT Abd and Pelvis [CT abd pelvis IV con only] Stat 03/22/25 02:03 US gallbladder Stat Pending Results Patient Have Any Pending Studies at Discharge: No Discharge Instructions Given to Patient (Per Discharging Provider) See primary care provider soon as possible for consideration for elective gallbladder surgery Total Time Total Time Spent Total Time Spent (In Minutes): 50-minute Coding Level of Care Code 99333 INP/OBS DISCH >30 MIN Diagnoses Acute upper abdominal pain R10.10 Hypertension I10 Hyperlipidemia E78.5 Diabetes E11.9
== END 2025-03-23 12:30 | disposition home or self-care (01) ==
LOC: SUATTDRO → EDINP 00:57 → ED 00:57 → 3N 08:53